=== PATIENT | male | born 1975 | race Caucasian/White ===

== ENCOUNTER → 2022-08-09 08:38 | Outpatient (CLI) | payer OTHER, SELFPAY ==
--- NOTE | 2022-08-09 09:27 | DI.MRI.S_ITS ---
PROCEDURE: MR ANGIO HEAD WO CON INDICATIONS: NEW ONSET OCCIPITAL HEADACHES WITH SEX TECHNIQUE: Noncontrast axial 3-D [id number] MR angiogram, with 3-dimensional maximum intensity projection (MIP) reformats of the internal carotid arteries and posterior circulation then performed. COMPARISON: None. FINDINGS: Image quality: Excellent. Anterior circulation: Intracranial internal carotid arteries demonstrate normal size and intraluminal flow signal. The flow within the paired anterior cerebral arteries is normal and symmetric. The flow within the middle cerebral arteries is normal and symmetric. The anterior communicating artery is seen. No stenoses, occlusions, or aneurysms. Posterior circulation: Visualized portions of the vertebral arteries demonstrate normal caliber, and join to form a normal appearing basilar artery. The flow within the posterior cerebral arteries is normal and symmetric. No stenoses, occlusions, or aneurysms. IMPRESSION: Negative cerebral MR angiography. Dictated by: Freddy Calero M.D. on 08/09/2022 at 9:48 Approved by: Freddy Calero M.D. on 08/09/2022 at 9:49
== END ==
PROVIDERS: Referring Provider Internal Medicine; Visit Provider Internal Medicine
DX: G44.59 Other complicated headache syndrome (principal)
CPT/HCPCS: 70544